=== PATIENT | female | born 1980 | race Caucasian/White ===

== ENCOUNTER 2020-06-09 15:49 | Inpatient (IN) | payer MEDICARE ==
[~2020-06-09] VITALS: Ht 160 cm; Wt 88.7 kg
[2020-06-09] MEDS ORDERED: LURA80TA2 PO (18:40)
[2020-06-09] MEDS ORDERED: PROP20TA18 PO (18:40)
[2020-06-09] MEDS ORDERED: RIZA10TA42 PO (18:40)
[2020-06-09] MEDS ORDERED: LEVO112T4 PO (18:40)
[2020-06-09] MEDS ORDERED: PNEUMOCOCCAL VACCINE POLYVALENT 0.5 ML VIAL [PPSV23] IM ONE (19:30)
[2020-06-09] MEDS: LORazepam 2 MG TABLET PO PRN (19:54)
[2020-06-09 20:03] VITALS: BP 137/92
[2020-06-10 00:44] VITALS: BP 132/87
[2020-06-10] MEDS: LEVOTHYROXINE SODIUM 112 MCG TABLET PO SCH (06:57)
[2020-06-10] MEDS ORDERED: IBUPROFEN 400 MG TABLET PO PRN (08:15)
[2020-06-10] MEDS ORDERED: GuaiFENesin/D-METHORPHAN [SUGAR-FREE] 200-20MG/10 ML SYRUP UDCUP PO PRN (08:15)
[2020-06-10] MEDS ORDERED: PETROLATUM,WHITE 28 GM JELLY TP PRN (08:15)
[2020-06-10] MEDS ORDERED: ONDANSETRON HCL 4 MG TABLET PO PRN (08:15)
[2020-06-10] MEDS ORDERED: MAG HYDROX/AL HYDROX/SIMETH ES 30 ML SUSPENSION UDCUP PO PRN (08:15)
[2020-06-10] MEDS ORDERED: DOCUSATE SODIUM 100 MG CAPSULE PO PRN (08:15)
[2020-06-10] MEDS ORDERED: ALBUTEROL SULFATE HFA 90 MCG/PUFF 8 GM INHALER IH PRN (08:15)
[2020-06-10] MEDS ORDERED: MAGNESIUM HYDROXIDE SUSPENSION 30 ML UDCUP PO PRN (08:15)
[2020-06-10 08:17] VITALS: BP 126/79
[2020-06-10 08:27] LABS: BASOPHILS % (AUTO) 0.4 % (0.0-2.0); EOSINOPHILS % (AUTO) 2.8 % (1.0-6.0); HEMATOCRIT 34.7 % (36-46); HEMOGLOBIN 11.4 g/dL (12.0-16.0); LYMPHOCYTES # (AUTO) 2.6 K/uL (1.0-4.8); LYMPHOCYTES % (AUTO) 32.3 % (22.0-44.0); MEAN CORPUSCULAR HEMOGLOBIN 28.6 pg (26.0-34.0); MEAN CORPUSCULAR VOLUME 87 fL (80-100); MONOCYTES # (AUTO) 0.5 K/uL (0.1-1.0); MONOCYTES % (AUTO) 6.3 % (2.0-9.0); NEUTROPHILS # (AUTO) 4.7 K/uL (1.8-7.7); NEUTROPHILS % (AUTO) 58.2 % (40.0-70.0); PLATELET COUNT (AUTO) 293 K/uL (150-450); RED CELL DISTRIBUTION WIDTH 14.7 % (11.5-14.5)
[2020-06-10] MEDS: PROPRANOLOL HCL 20 MG TABLET PO SCH ×2 (08:42→17:07)
[2020-06-10 08:45] LABS: HEMOGLOBIN A1C 5.3 % (3.8-5.6)
[2020-06-10] MEDS: LORazepam 2 MG TABLET PO PRN ×3 (08:48→16:36)
[2020-06-10] MEDS ORDERED: PROPRANOLOL HCL 20 MG TABLET PO SCH (09:00)
[2020-06-10 09:05] LABS: ALANINE AMINOTRANSFERASE 25 U/L (12-78); ALBUMIN 3.2 g/dL (3.4-5.0); ALKALINE PHOSPHATASE 76 U/L (46-116); ANION GAP 10 mmol/L (8-16); ASPARTATE AMINOTRANSFERASE 14 U/L (15-37); BILIRUBIN,TOTAL 0.3 mg/dL (0.1-1.0); CALCIUM, TOTAL 9.2 mg/dL (8.8-10.5); CARBON DIOXIDE 25 mmol/L (22-29); CHLORIDE 105 mmol/L (98-107); CHOL/HDL RATIO 4.6 (3.9-5.7); CHOLESTEROL 158 mg/dL (131-200); CREATININE 0.72 mg/dL (0.60-1.30); GLOMERULAR FILTR. RATE CALC > 60 mL/min (>60); GLUCOSE,RANDOM 91 mg/dL (70-110); HCG,QUANTITATIVE < 1 mIU/mL (0-6); HDL CHOLESTEROL 34 mg/dL (40-60); LDL CHOL (CALC.) 84 mg/dL (0-130); POTASSIUM 3.9 mmol/L (3.5-5.1); SODIUM SERUM 140 mmol/L (136-145); THYROID STIMULATING HORMONE 0.53 uIU/mL (0.36-3.74); TOTAL PROTEIN, SERUM 6.9 g/dL (6.4-8.2); TRIGLYCERIDES 200 mg/dL (15-150); UREA NITROGEN, BLOOD 6 mg/dL (7-18)
[2020-06-10] MEDS: LURASIDONE HCL 60 MG TABLET PO SCH (16:35)
[2020-06-10] MEDS: NICOTINE 14 MG/24 HOUR PATCH TD PRN (16:40)
[2020-06-10 20:23] VITALS: BP 129/81
[2020-06-10] MEDS: ZOLPIDEM TARTRATE 10 MG TABLET PO PRN (20:56)
[2020-06-11] MEDS: LORazepam 2 MG TABLET PO PRN ×5 (00:08→21:45)
[2020-06-11 00:15] VITALS: BP 122/76
[2020-06-11] MEDS: ACETAMINOPHEN 325 MG TABLET PO PRN ×2 (00:42→18:35)
[2020-06-11] MEDS ORDERED: LEVOTHYROXINE SODIUM 112 MCG TABLET PO SCH (06:30)
[2020-06-11] MEDS: LEVOTHYROXINE SODIUM 112 MCG TABLET PO SCH (06:31)
[2020-06-11 08:22] VITALS: BP 118/76
[2020-06-11] MEDS: PROPRANOLOL HCL 20 MG TABLET PO SCH ×2 (08:36→16:54)
[2020-06-11 16:18] VITALS: BP 149/87
[2020-06-11] MEDS: LURASIDONE HCL 60 MG TABLET PO SCH (16:54)
[2020-06-11] MEDS: ZOLPIDEM TARTRATE 10 MG TABLET PO PRN (20:26)
[2020-06-12 00:33] VITALS: BP 130/85
[2020-06-12] MEDS: LORazepam 2 MG TABLET PO PRN ×4 (01:06→16:35)
[2020-06-12] MEDS: NICOTINE 14 MG/24 HOUR PATCH TD PRN (01:07)
[2020-06-12] MEDS: ACETAMINOPHEN 325 MG TABLET PO PRN (05:47)
[2020-06-12] MEDS: LEVOTHYROXINE SODIUM 112 MCG TABLET PO SCH (06:44)
[2020-06-12 08:21] VITALS: BP 118/79
[2020-06-12] MEDS: PROPRANOLOL HCL 20 MG TABLET PO SCH ×2 (08:59→16:35)
[2020-06-12 09:39] VITALS: BP 132/80
[2020-06-12] MEDS: IBUPROFEN 400 MG TABLET PO PRN (09:39)
[2020-06-12 16:26] VITALS: BP 136/83
[2020-06-12] MEDS: LURASIDONE HCL 60 MG TABLET PO SCH (17:17)
[2020-06-12] MEDS: ZOLPIDEM TARTRATE 10 MG TABLET PO PRN (20:52)
[2020-06-13 01:09] VITALS: BP 133/85
[2020-06-13] MEDS: HALOPERIDOL 5 MG TABLET PO PRN ×2 (01:42→23:42)
[2020-06-13] MEDS: LORazepam 2 MG TABLET PO PRN ×6 (01:42→20:51)
[2020-06-13] MEDS: FERROUS SULFATE 325 MG EC TABLET PO SCH ×2 (07:11→16:13)
[2020-06-13] MEDS: LEVOTHYROXINE SODIUM 112 MCG TABLET PO SCH (07:13)
[2020-06-13 08:16] VITALS: BP 126/82
[2020-06-13] MEDS: PROPRANOLOL HCL 20 MG TABLET PO SCH ×2 (08:45→16:13)
[2020-06-13] MEDS: NICOTINE 14 MG/24 HOUR PATCH TD PRN (09:27)
[2020-06-13] MEDS: IBUPROFEN 400 MG TABLET PO PRN ×2 (16:13→23:42)
[2020-06-13] MEDS: LURASIDONE HCL 60 MG TABLET PO SCH (16:13)
[2020-06-13 16:34] VITALS: BP 113/73
[2020-06-13] MEDS: LOPERAMIDE HCL 2 MG CAPSULE PO PRN (18:11)
[2020-06-13] MEDS: ZOLPIDEM TARTRATE 10 MG TABLET PO PRN (20:00)
[2020-06-14 02:08] VITALS: BP 110/76
[2020-06-14] MEDS: FERROUS SULFATE 325 MG EC TABLET PO SCH ×2 (06:23→16:06)
[2020-06-14] MEDS: LEVOTHYROXINE SODIUM 112 MCG TABLET PO SCH (06:23)
[2020-06-14] MEDS: PROPRANOLOL HCL 20 MG TABLET PO SCH ×2 (08:46→16:06)
[2020-06-14] MEDS: LORazepam 2 MG TABLET PO PRN ×4 (08:50→20:59)
[2020-06-14] MEDS: NICOTINE 14 MG/24 HOUR PATCH TD PRN (09:42)
[2020-06-14] MEDS: LOPERAMIDE HCL 2 MG CAPSULE PO PRN ×2 (14:17→18:25)
[2020-06-14] MEDS: LURASIDONE HCL 60 MG TABLET PO SCH (16:06)
[2020-06-14 16:08] VITALS: BP 121/71
[2020-06-14] MEDS: ZOLPIDEM TARTRATE 10 MG TABLET PO PRN (20:01)
[2020-06-14] MEDS: HALOPERIDOL 5 MG TABLET PO PRN (20:59)
[2020-06-15 01:48] VITALS: BP 114/76
[2020-06-15] MEDS: LEVOTHYROXINE SODIUM 112 MCG TABLET PO SCH (06:54)
[2020-06-15] MEDS: FERROUS SULFATE 325 MG EC TABLET PO SCH ×2 (06:54→16:02)
[2020-06-15 08:16] VITALS: BP 118/64
[2020-06-15] MEDS: PROPRANOLOL HCL 20 MG TABLET PO SCH ×2 (08:36→16:03)
[2020-06-15] MEDS: LORazepam 2 MG TABLET PO PRN ×3 (08:40→17:05)
[2020-06-15] MEDS: NICOTINE 14 MG/24 HOUR PATCH TD PRN (08:48)
[2020-06-15] MEDS: LOPERAMIDE HCL 2 MG CAPSULE PO PRN (12:10)
[2020-06-15] MEDS: LURASIDONE HCL 60 MG TABLET PO SCH (16:02)
[2020-06-15] MEDS: IBUPROFEN 400 MG TABLET PO PRN (16:04)
[2020-06-15] MEDS: HALOPERIDOL 5 MG TABLET PO PRN (16:15)
[2020-06-15 16:21] VITALS: BP 120/74
[2020-06-15] MEDS: ZOLPIDEM TARTRATE 10 MG TABLET PO PRN (20:07)
[2020-06-16 01:42] VITALS: BP 128/83
[2020-06-16] MEDS: LORazepam 2 MG TABLET PO PRN ×4 (01:50→20:35)
[2020-06-16] MEDS: IBUPROFEN 400 MG TABLET PO PRN ×2 (02:05→13:12)
[2020-06-16] MEDS: LEVOTHYROXINE SODIUM 112 MCG TABLET PO SCH (06:44)
[2020-06-16] MEDS: FERROUS SULFATE 325 MG EC TABLET PO SCH ×2 (07:15→17:16)
[2020-06-16 09:35] VITALS: BP 129/98
[2020-06-16] MEDS: PROPRANOLOL HCL 20 MG TABLET PO SCH ×2 (09:44→17:15)
[2020-06-16] MEDS: NICOTINE 14 MG/24 HOUR PATCH TD PRN (09:45)
[2020-06-16 16:46] VITALS: BP 107/74
[2020-06-16] MEDS: LURASIDONE HCL 60 MG TABLET PO SCH (17:16)
[2020-06-16] MEDS: ZOLPIDEM TARTRATE 10 MG TABLET PO PRN (20:35)
[2020-06-17 00:15] VITALS: BP 104/78
[2020-06-17] MEDS: IBUPROFEN 400 MG TABLET PO PRN (01:00)
[2020-06-17] MEDS: FERROUS SULFATE 325 MG EC TABLET PO SCH ×2 (06:33→16:40)
[2020-06-17] MEDS: LEVOTHYROXINE SODIUM 112 MCG TABLET PO SCH (06:33)
[2020-06-17 08:18] VITALS: BP 129/84
[2020-06-17] MEDS: PROPRANOLOL HCL 20 MG TABLET PO SCH ×2 (09:13→16:40)
[2020-06-17] MEDS: LORazepam 2 MG TABLET PO PRN ×2 (09:13→16:40)
[2020-06-17 09:16] LABS: APPEARANCE,URINE CLOUDY (CLEAR); BILIRUBIN,URINE NEGATIVE (NEGATIVE); GLUCOSE, URINE (UA) NEGATIVE (NEGATIVE); KETONES,URINE NEGATIVE (NEGATIVE); LEUKOCYTE ESTERASE ,URINE SMALL (NEGATIVE); NITRATE,URINE NEGATIVE (NEGATIVE); OCCULT BLOOD,URINE SMALL (NEGATIVE); PH,URINE 6.5 (5.0-8.0); PROTEIN,URINE NEGATIVE (NEGATIVE); UROBILINOGEN,URINE 0.2 mg/dL (<=1.0)
[2020-06-17 09:26] LABS: AMPHET/METH SCREEN,URINE NEGATIVE (NEGATIVE); BARBITURATE SCREEN, URINE NEGATIVE (NEGATIVE); BENZODIAZEPINES SCREEN,URINE NEGATIVE (NEGATIVE); CANNABINOID SCREEN,URINE NEGATIVE (NEGATIVE); COCAINE SCREEN,URINE NEGATIVE (NEGATIVE); METHADONE SCREEN, URINE NEGATIVE (NEGATIVE); OPIATE SCREEN,URINE NEGATIVE (NEGATIVE)
[2020-06-17 09:32] LABS: PHENCYCLIDINE SCREEN,URINE NEGATIVE (NEGATIVE)
[2020-06-17 09:39] LABS: BACTERIA,URINE Rare /HPF (None Seen); RBC,URINE 0-2 /HPF (0-2)
[2020-06-17 09:40] LABS: SQUAMOUS EPITHELIAL CELL,UR Moderate /LPF (None Seen)
[2020-06-17] MEDS: NICOTINE 14 MG/24 HOUR PATCH TD PRN (09:46)
[2020-06-17] MEDS ORDERED: LURA60TA PO (12:28)
[2020-06-17 16:08] VITALS: BP 121/84
[2020-06-17] MEDS ORDERED: FERR325T22 PO (16:27)
[2020-06-17] MEDS: LURASIDONE HCL 60 MG TABLET PO SCH (16:40)
== END 2020-06-17 18:00 | disposition home or self-care (01) | DRG 885 ==
LOC: B3A 18:35
PROC: 3E0234Z Introduction of Serum, Toxoid and Vaccine into Muscle, Percutaneous Approach (ICD-10-PCS; principal; 2020-06-09)
DX: F31.4 Bipolar disorder, current episode depressed, severe, without psychotic features (principal); R45.851 Suicidal ideations; D64.9 Anemia, unspecified; E03.9 Hypothyroidism, unspecified; F10.10 Alcohol abuse, uncomplicated; I10 Essential (primary) hypertension; Y90.9 Presence of alcohol in blood, level not specified; F19.10 Other psychoactive substance abuse, uncomplicated; Z88.1 Allergy status to other antibiotic agents; Z23 Encounter for immunization
CPT/HCPCS: 80307; 83036; 84436; 84443; 86592; 87081; 90732; A9575

== ENCOUNTER 2020-09-30 06:28 | Inpatient (IN) | payer MEDICARE, MEDICAID ==
[~2020-09-30] VITALS: Ht 160 cm; Wt 87.2 kg
[~2020-09-30 06:28] MED LIST: FERR325T22 PO; LEVO112T4 PO; LURA60TA PO; PROP20TA18 PO
[2020-09-30] MEDS ORDERED: -PHARMACY VACCINE NOTE- MISC ONE (13:15)
[2020-09-30] MEDS: LORazepam 2 MG TABLET PO PRN ×2 (13:36→20:30)
[2020-09-30 15:54] VITALS: BP 122/75
[2020-09-30 16:10] VITALS: BP 134/75
[2020-09-30] MEDS: ZOLPIDEM TARTRATE 10 MG TABLET PO PRN (20:30)
[2020-10-01 05:13] VITALS: BP 127/75
[2020-10-01] MEDS ORDERED: PETROLATUM,WHITE 28 GM JELLY TP PRN (07:45)
[2020-10-01] MEDS ORDERED: GuaiFENesin/D-METHORPHAN [SUGAR-FREE] 200-20MG/10 ML SYRUP UDCUP PO PRN (07:45)
[2020-10-01] MEDS ORDERED: ALBUTEROL SULFATE HFA 90 MCG/PUFF 8 GM INHALER IH PRN (07:45)
[2020-10-01] MEDS ORDERED: CloNIDine HCL 0.1 MG TABLET PO PRN (07:45)
[2020-10-01] MEDS ORDERED: DOCUSATE SODIUM 100 MG CAPSULE PO PRN (07:45)
[2020-10-01] MEDS ORDERED: LOPERAMIDE HCL 2 MG CAPSULE PO PRN (07:45)
[2020-10-01] MEDS ORDERED: ONDANSETRON HCL 4 MG TABLET PO PRN (07:45)
[2020-10-01] MEDS ORDERED: MAGNESIUM HYDROXIDE SUSPENSION 30 ML UDCUP PO PRN (07:45)
[2020-10-01 08:17] VITALS: BP 124/80
[2020-10-01] MEDS: ARIPiprazole 10 MG TABLET PO SCH (08:36)
[2020-10-01] MEDS: LORazepam 2 MG TABLET PO PRN ×3 (08:36→20:24)
[2020-10-01] MEDS: ACETAMINOPHEN 325 MG TABLET PO PRN (15:23)
[2020-10-01 16:19] VITALS: BP 127/86
[2020-10-01] MEDS: NICOTINE 14 MG/24 HOUR PATCH TD PRN (19:01)
[2020-10-01] MEDS: ZOLPIDEM TARTRATE 10 MG TABLET PO PRN (21:52)
[2020-10-02] MEDS: ACETAMINOPHEN 325 MG TABLET PO PRN ×2 (00:01→22:58)
[2020-10-02 00:59] VITALS: BP 126/76
[2020-10-02] MEDS: HALOPERIDOL 5 MG TABLET PO PRN (01:00)
[2020-10-02] MEDS: LORazepam 2 MG TABLET PO PRN ×3 (01:01→18:34)
[2020-10-02 08:05] LABS: BASOPHILS % (AUTO) 0.4 % (0.0-2.0); EOSINOPHILS % (AUTO) 1.9 % (1.0-6.0); HEMATOCRIT 39.2 % (36-46); HEMOGLOBIN 13.2 g/dL (12.0-16.0); LYMPHOCYTES # (AUTO) 3.6 K/uL (1.0-4.8); LYMPHOCYTES % (AUTO) 35.2 % (22.0-44.0); MEAN CORPUSCULAR HEMOGLOBIN 29.5 pg (26.0-34.0); MEAN CORPUSCULAR HGB CONC 33.6 G/dL (31.0-37.0); MEAN CORPUSCULAR VOLUME 88 fL (80-100); MONOCYTES # (AUTO) 0.5 K/uL (0.1-1.0); MONOCYTES % (AUTO) 5.4 % (2.0-9.0); NEUTROPHILS # (AUTO) 5.8 K/uL (1.8-7.7); NEUTROPHILS % (AUTO) 57.1 % (40.0-70.0); PLATELET COUNT (AUTO) 281 K/uL (150-450); RED BLOOD CELL COUNT(AUTO) 4.47 MIL/uL (4.00-5.20); RED CELL DISTRIBUTION WIDTH 15.6 % (11.5-14.5)
[2020-10-02 08:11] LABS: APPEARANCE,URINE TURBID (CLEAR); BILIRUBIN,URINE NEGATIVE (NEGATIVE); GLUCOSE, URINE (UA) NEGATIVE (NEGATIVE); KETONES,URINE NEGATIVE (NEGATIVE); LEUKOCYTE ESTERASE ,URINE LARGE (NEGATIVE); NITRATE,URINE NEGATIVE (NEGATIVE); OCCULT BLOOD,URINE LARGE (NEGATIVE); PROTEIN,URINE POS 1+ (NEGATIVE); UROBILINOGEN,URINE 0.2 mg/dL (<=1.0)
[2020-10-02 08:16] LABS: AMPHET/METH SCREEN,URINE NEGATIVE (NEGATIVE); BARBITURATE SCREEN, URINE NEGATIVE (NEGATIVE); BENZODIAZEPINES SCREEN,URINE NEGATIVE (NEGATIVE); CANNABINOID SCREEN,URINE NEGATIVE (NEGATIVE); COCAINE SCREEN,URINE NEGATIVE (NEGATIVE); METHADONE SCREEN, URINE NEGATIVE (NEGATIVE); OPIATE SCREEN,URINE NEGATIVE (NEGATIVE); PHENCYCLIDINE SCREEN,URINE NEGATIVE (NEGATIVE)
[2020-10-02 08:55] LABS: ALANINE AMINOTRANSFERASE 26 U/L (12-78); ALBUMIN 3.4 g/dL (3.4-5.0); ALKALINE PHOSPHATASE 83 U/L (46-116); ANION GAP 10 mmol/L (8-16); ASPARTATE AMINOTRANSFERASE 17 U/L (15-37); BILIRUBIN,TOTAL 0.5 mg/dL (0.1-1.0); CARBON DIOXIDE 23 mmol/L (22-29); CHLORIDE 104 mmol/L (98-107); CREATININE 0.72 mg/dL (0.60-1.30); FREE T4 (FREE THYROXINE) 1.19 ng/dL (0.76-1.46); GLOMERULAR FILTR. RATE CALC > 60 mL/min (>60); GLUCOSE,RANDOM 79 mg/dL (70-110); HCG,QUANTITATIVE < 1 mIU/mL (0-6); POTASSIUM 3.3 mmol/L (3.5-5.1); SODIUM SERUM 137 mmol/L (136-145); THYROID STIMULATING HORMONE 2.14 uIU/mL (0.36-3.74); TOTAL PROTEIN, SERUM 7.4 g/dL (6.4-8.2); UREA NITROGEN, BLOOD 10 mg/dL (7-18)
[2020-10-02 09:15] LABS: SQUAMOUS EPITHELIAL CELL,UR Few /LPF (None Seen)
[2020-10-02 09:16] LABS: RBC,URINE 51-100 /HPF (0-2); WBC,URINE 51-100 /HPF (0-5)
[2020-10-02] MEDS: ARIPiprazole 10 MG TABLET PO SCH (09:17)
[2020-10-02 09:18] LABS: BACTERIA,URINE Few /HPF (None Seen)
[2020-10-02 16:18] VITALS: BP 130/78
[2020-10-02] MEDS: CEPHALEXIN MONOHYDRATE 500 MG CAPSULE PO SCH (17:42)
[2020-10-02] MEDS: MAG HYDROX/AL HYDROX/SIMETH ES 30 ML SUSPENSION UDCUP PO PRN (18:34)
[2020-10-02] MEDS: ZOLPIDEM TARTRATE 10 MG TABLET PO PRN (19:59)
[2020-10-02 22:50] VITALS: BP 132/78
[2020-10-03] MEDS: LORazepam 2 MG TABLET PO PRN ×4 (00:09→20:46)
[2020-10-03] MEDS: HALOPERIDOL 5 MG TABLET PO PRN ×2 (00:09→22:55)
[2020-10-03 00:51] VITALS: BP 126/75
[2020-10-03] MEDS: ARIPiprazole 10 MG TABLET PO SCH (08:17)
[2020-10-03] MEDS: CEPHALEXIN MONOHYDRATE 500 MG CAPSULE PO SCH ×3 (08:17→16:34)
[2020-10-03 08:27] VITALS: BP 111/61
[2020-10-03 16:10] VITALS: BP 114/72
[2020-10-03] MEDS: NICOTINE 14 MG/24 HOUR PATCH TD PRN (17:18)
[2020-10-03] MEDS: ZOLPIDEM TARTRATE 10 MG TABLET PO PRN (20:17)
[2020-10-04 00:31] VITALS: BP 125/81
[2020-10-04] MEDS: LORazepam 2 MG TABLET PO PRN ×4 (01:03→20:21)
[2020-10-04 08:20] VITALS: BP 101/55
[2020-10-04] MEDS: CEPHALEXIN MONOHYDRATE 500 MG CAPSULE PO SCH ×3 (08:55→16:17)
[2020-10-04] MEDS: ARIPiprazole 10 MG TABLET PO SCH (08:55)
[2020-10-04 09:50] VITALS: BP 110/70
[2020-10-04 16:22] VITALS: BP 122/75
[2020-10-04] MEDS: ZOLPIDEM TARTRATE 10 MG TABLET PO PRN (22:07)
[2020-10-04 23:44] VITALS: BP 124/99
[2020-10-04] MEDS: ACETAMINOPHEN 325 MG TABLET PO PRN (23:50)
[2020-10-05] MEDS: LORazepam 2 MG TABLET PO PRN ×4 (01:06→18:50)
[2020-10-05 08:17] VITALS: BP 116/73
[2020-10-05] MEDS: CEPHALEXIN MONOHYDRATE 500 MG CAPSULE PO SCH ×3 (09:13→16:01)
[2020-10-05] MEDS: ARIPiprazole 10 MG TABLET PO SCH (09:13)
[2020-10-05] MEDS: NICOTINE 14 MG/24 HOUR PATCH TD PRN (10:49)
[2020-10-05] MEDS: ACETAMINOPHEN 325 MG TABLET PO PRN (16:01)
[2020-10-05 16:10] VITALS: BP 128/77
[2020-10-05] MEDS: ZOLPIDEM TARTRATE 10 MG TABLET PO PRN (20:09)
[2020-10-05] MEDS: IBUPROFEN 400 MG TABLET PO PRN (20:18)
[2020-10-05] MEDS: HALOPERIDOL 5 MG TABLET PO PRN (22:05)
[2020-10-06 02:28] VITALS: BP 131/86
[2020-10-06] MEDS: LORazepam 2 MG TABLET PO PRN ×4 (02:44→23:51)
[2020-10-06 08:08] VITALS: BP 118/79
[2020-10-06] MEDS: ARIPiprazole 10 MG TABLET PO SCH (09:23)
[2020-10-06] MEDS: CEPHALEXIN MONOHYDRATE 500 MG CAPSULE PO SCH ×3 (09:23→16:00)
[2020-10-06] MEDS: HALOPERIDOL 5 MG TABLET PO PRN ×2 (13:46→22:30)
[2020-10-06] MEDS: NICOTINE 14 MG/24 HOUR PATCH TD PRN (14:37)
[2020-10-06] MEDS: ACETAMINOPHEN 325 MG TABLET PO PRN (16:00)
[2020-10-06 16:08] VITALS: BP 126/76
[2020-10-06] MEDS: ZOLPIDEM TARTRATE 10 MG TABLET PO PRN (19:13)
[2020-10-07 05:32] VITALS: BP 140/88
[2020-10-07 08:12] VITALS: BP 110/78
[2020-10-07] MEDS: CEPHALEXIN MONOHYDRATE 500 MG CAPSULE PO SCH ×3 (08:35→16:35)
[2020-10-07] MEDS: ARIPiprazole 10 MG TABLET PO SCH (08:35)
[2020-10-07] MEDS: LORazepam 2 MG TABLET PO PRN ×4 (11:01→23:15)
[2020-10-07] MEDS: NICOTINE 14 MG/24 HOUR PATCH TD PRN (14:21)
[2020-10-07] MEDS: HALOPERIDOL 5 MG TABLET PO PRN ×2 (15:12→19:12)
[2020-10-07 16:13] VITALS: BP 116/73
[2020-10-07] MEDS: MAG HYDROX/AL HYDROX/SIMETH ES 30 ML SUSPENSION UDCUP PO PRN (17:39)
[2020-10-07] MEDS: ZOLPIDEM TARTRATE 10 MG TABLET PO PRN (20:14)
[2020-10-07] MEDS ORDERED: DiphenhydrAMINE HCL 25 MG CAPSULE PO PRN (23:00)
[2020-10-07] MEDS: DiphenhydrAMINE HCL 50 MG CAPSULE PO PRN (23:02)
[2020-10-08 04:48] VITALS: BP 112/76
[2020-10-08 08:31] VITALS: BP 130/78
[2020-10-08] MEDS: ARIPiprazole 10 MG TABLET PO SCH (08:43)
[2020-10-08] MEDS: CEPHALEXIN MONOHYDRATE 500 MG CAPSULE PO SCH ×3 (08:43→16:31)
[2020-10-08] MEDS: LORazepam 2 MG TABLET PO PRN ×2 (08:43→20:24)
[2020-10-08] MEDS: NICOTINE 14 MG/24 HOUR PATCH TD PRN (12:37)
[2020-10-08] MEDS ORDERED: LORazepam 2 MG/ML VIAL ONE (15:51)
[2020-10-08] MEDS ORDERED: HALOPERIDOL LACTATE 5 MG/ML VIAL ONE (15:51)
[2020-10-08] MEDS ORDERED: HALOPERIDOL LACTATE 5 MG/ML VIAL IM ONE (16:00)
[2020-10-08] MEDS ORDERED: DiphenhydrAMINE HCL 50 MG/ML VIAL IM ONE (16:00)
[2020-10-08] MEDS ORDERED: LORazepam 2 MG/ML VIAL IM ONE (16:00)
[2020-10-08 16:14] VITALS: BP 127/88
[2020-10-08] MEDS: DiphenhydrAMINE HCL 50 MG CAPSULE PO PRN (20:23)
[2020-10-08] MEDS: MAG HYDROX/AL HYDROX/SIMETH ES 30 ML SUSPENSION UDCUP PO PRN (21:09)
[2020-10-09 05:17] VITALS: BP 122/70
[2020-10-09 08:14] VITALS: BP 126/82
[2020-10-09] MEDS: CEPHALEXIN MONOHYDRATE 500 MG CAPSULE PO SCH ×2 (10:01→13:24)
[2020-10-09] MEDS: ARIPiprazole 10 MG TABLET PO SCH (10:01)
[2020-10-09] MEDS: LORazepam 2 MG TABLET PO PRN ×3 (10:01→20:22)
[2020-10-09] MEDS: NICOTINE 14 MG/24 HOUR PATCH TD PRN (14:44)
[2020-10-09 16:10] VITALS: BP 124/79
[2020-10-09] MEDS: ACETAMINOPHEN 325 MG TABLET PO PRN (16:12)
[2020-10-09] MEDS: DiphenhydrAMINE HCL 50 MG CAPSULE PO PRN (20:22)
[2020-10-09] MEDS: TraMADol HCL 50 MG TABLET PO PRN (22:30)
[2020-10-09] MEDS: IBUPROFEN 400 MG TABLET PO PRN (23:09)
[2020-10-10 00:03] VITALS: BP 121/76
[2020-10-10] MEDS: LORazepam 2 MG TABLET PO PRN ×4 (00:33→22:13)
[2020-10-10] MEDS: HALOPERIDOL 5 MG TABLET PO PRN (00:33)
[2020-10-10] MEDS: ZOLPIDEM TARTRATE 10 MG TABLET PO PRN ×2 (00:33→20:48)
[2020-10-10] MEDS ORDERED: BENZOCAINE 10% 7 GM GEL TP PRN (01:45)
[2020-10-10] MEDS: MAG HYDROX/AL HYDROX/SIMETH ES 30 ML SUSPENSION UDCUP PO PRN ×2 (02:58→22:45)
[2020-10-10] MEDS: ARIPiprazole 15 MG TABLET PO SCH (08:53)
[2020-10-10 09:25] VITALS: BP 110/68
[2020-10-10] MEDS: NICOTINE 14 MG/24 HOUR PATCH TD PRN (13:50)
[2020-10-10 13:56] VITALS: BP 117/77
[2020-10-10] MEDS: IBUPROFEN 400 MG TABLET PO PRN (13:56)
[2020-10-10 18:41] VITALS: BP 118/73
[2020-10-10 20:47] VITALS: BP 120/70
[2020-10-10] MEDS: TraMADol HCL 50 MG TABLET PO PRN (20:47)
[2020-10-11 00:07] VITALS: BP 132/76
[2020-10-11] MEDS: DiphenhydrAMINE HCL 50 MG CAPSULE PO PRN ×2 (02:27→20:13)
[2020-10-11 08:18] VITALS: BP 106/63
[2020-10-11] MEDS: ARIPiprazole 15 MG TABLET PO SCH (09:19)
[2020-10-11 16:06] VITALS: BP 128/83
[2020-10-11] MEDS: ACETAMINOPHEN 325 MG TABLET PO PRN (16:09)
[2020-10-11] MEDS: LORazepam 2 MG TABLET PO PRN ×2 (16:09→22:36)
[2020-10-11] MEDS: TraMADol HCL 50 MG TABLET PO PRN (17:36)
[2020-10-11] MEDS: NICOTINE 14 MG/24 HOUR PATCH TD PRN (17:36)
[2020-10-11] MEDS: ZOLPIDEM TARTRATE 10 MG TABLET PO PRN (20:13)
[2020-10-12] MEDS: TraMADol HCL 50 MG TABLET PO PRN (02:16)
[2020-10-12 02:21] VITALS: BP 112/89
[2020-10-12 02:23] VITALS: BP 102/80
[2020-10-12 03:37] VITALS: BP 126/78
[2020-10-12 08:15] VITALS: BP 120/71
[2020-10-12] MEDS: ARIPiprazole 15 MG TABLET PO SCH (08:42)
[2020-10-12] MEDS: ACETAMINOPHEN 325 MG TABLET PO PRN (10:05)
[2020-10-12] MEDS ORDERED: ARIP15TA27 PO (12:47)
== END 2020-10-12 13:15 | disposition home or self-care (01) | DRG 885 ==
LOC: B3A 10:27
PROVIDERS: ADMIT Psychiatry & Neurology Child & Adolescent Psychiatry; ATTEND Psychiatry & Neurology Child & Adolescent Psychiatry
DX: F31.4 Bipolar disorder, current episode depressed, severe, without psychotic features (principal); F41.9 Anxiety disorder, unspecified; E03.9 Hypothyroidism, unspecified; D64.9 Anemia, unspecified; Z59.0 Homelessness; Z88.2 Allergy status to sulfonamides; Z20.822 Contact with and (suspected) exposure to COVID-19; R00.0 Tachycardia, unspecified
CPT/HCPCS: 80053; 80307; 81001; 84436; 84439; 84443; 84702; 85025; 87077; 87081; 87086; G0480; J1630; J2060